=== PATIENT | female | born 1955 | race Hispanic/Latino ===

== ENCOUNTER 2016-08-19 12:14 | Emergency (ER) | payer OTHER ==
--- NOTE | 2016-08-19 12:28 | ED DYSPNEA/ASTHMA COMPLAINT ---
History of Present Illness General Chief Complaint: Dyspnea (COPD, CHF, Other) Stated Complaint: SOB Source: patient, family, old records Exam Limitations: no limitations Vital Signs & Intake/Output Vital Signs & Intake/Output Vital Signs Date Time Temp Pulse Resp B/P Pulse O2 O2 Flow FiO2 Ox Delivery Rate 08/19 1638 97.6 75 18 104/62 97 Room Air 08/19 1625 97.4 75 20 107/56 96 Room Air 08/19 1434 97.3 78 18 106/57 99 Room Air 08/19 1400 98 Room Air 08/19 1253 94 08/19 1219 98.9 91 24 104/69 96 Allergies Coded Allergies: ciprofloxacin (From CIPRO) (UNKNOWN 08/19/16) lorazepam (UNKNOWN 08/19/16) metronidazole (UNKNOWN 08/19/16) Reconcile Medications Azithromycin (Zithromax) 250 MG TABLET 1 DP PO AD ATYPICAL PNEUMONIA 2 the first day followed by 1 for days 2-5 Meloxicam 15 MG TABLET 1 TAB PO DAILY PAIN (Reported) Triage Note: CO SOB SINCE LAST NIGHT PAIN TO RIBS AND LUNGS AND CHEST WITH INSPIRATION Triage Nurses Notes Reviewed? yes HPI: Patient presents complaining of shortness of breath and dyspnea on exertion since yesterday. Patient states that she is also getting sharp substernal chest pain when she ambulates occasionally when she rests. There is no radiation of the sharp pain. At its worst the pain is 5 out of 10. Patient denies any orthopnea and she slept on one pillow last night. Patient states that she's had a very mild cough for the past 2 days. Patient states that she had similar symptoms in May and again in the beginning of July and she was diagnosed with bronchitis. Past History Travel History Traveled to [place] past 21 day No Medical History Any Pertinent Medical History? see below for history Neurological: NONE EENT: NONE Cardiovascular: NONE Respiratory: NONE Gastrointestinal: NONE Hepatic: NONE Renal: NONE Musculoskeletal: ARTHRITIS Psychiatric: NONE Endocrine: NONE Surgical History Surgical History: non-contributory Psychosocial History Who do you live with Family Services at Home None What is your primary language Welsh Tobacco Use: Never used ETOH Use: denies use Illicit Drug Use: denies illicit drug use Family History Hx Contributory? No Review of Systems Review of Systems Constitutional: Reports: no symptoms. EENTM: Reports: no symptoms. Respiratory: Reports: see HPI, short of breath. Cardiovascular: Reports: no symptoms. GI: Reports: no symptoms. Genitourinary: Reports: no symptoms. Musculoskeletal: Reports: no symptoms. Skin: Reports: no symptoms. Neurological/Psychological: Reports: no symptoms. Hematologic/Endocrine: Reports: no symptoms. Immunologic/Allergic: Reports: no symptoms. All Other Systems: Reviewed and Negative Physical Exam Physical Exam General Appearance: well developed/nourished, alert, awake, anxious, mild distress Head: atraumatic, normal appearance Eyes: Bilateral: PERRL, EOMI. Ears, Nose, Throat: normal pharynx, normal ENT inspection, hearing grossly normal Neck: normal inspection, supple, full range of motion Respiratory: chest non-tender, no respiratory distress, decreased breath sounds Cardiovascular: regular rate/rhythm, normal peripheral pulses Gastrointestinal: normal bowel sounds, soft, non-tender, no organomegaly Extremities: normal inspection, normal capillary refill, normal range of motion, no edema Neurologic/Psych: no motor/sensory deficits, awake, alert, oriented x 3, normal mood/affect Skin: intact, normal color, warm/dry Lymphatic: no anterior cervical jesus Core Measures ACS in differential dx? Yes ASA ordered for poss ACS? No-ACS ruled out Severe Sepsis Present: No Septic Shock Present: No Progress Differential Diagnosis: asthma, bronchitis, CHF, COPD, pulmonary embolism, pneumonia, pneumothorax Plan of Care: Orders Procedure Date/time Status TROPONIN LEVEL 08/19 1227 Complete D-DIMER 08/19 1227 Complete COMPREHENSIVE METABOLIC PANEL 08/19 1227 Complete CBC WITHOUT DIFFERENTIAL 08/19 1227 Complete EKG 08/19 1220 Active Laboratory Tests 08/19/16 1240: Anion Gap 12, Estimated GFR > 60, BUN/Creatinine Ratio 32.5 H, Glucose 96, Calcium 9.8, Total Bilirubin 0.6, AST 17, ALT 31, Alkaline Phosphatase 88, Troponin I < 0.01, Total Protein 7.2, Albumin 4.2, Globulin 3.0, Albumin/ Globulin Ratio 1.4, D-Dimer 238 H, CBC w Diff NO MAN DIFF REQ, RBC 4.03 L, MCV 89.6, MCH 30.3, RDW 13.4, MPV 8.6, Gran % 73.2, Lymphocytes % 12.9 L, Monocytes % 7.1, Eosinophils % 6.2 H, Basophils % 0.6, Absolute Granulocytes 6.5, Absolute Lymphocytes 1.2, Absolute Monocytes 0.6, Absolute Eosinophils 0.6, Absolute Basophils 0.1, PUBS MCHC 33.8 Diagnostic Imaging: Viewed by Me: Radiology Read. Discussed w/RAD: Radiology Read. CXR Impression: PATIENT: ARIK QUINTEROS PRESENT AGE: 61 PATIENT ACCOUNT NO: [id number] : 54 LOCATION: [facility] ORDERING PHYSICIAN: PEACE SALES MD SERVICE DATE: 08/19/16 EXAM TYPE: RAD - XRY-CHEST XRAY, PA AND LATERAL EXAMINATION: XR CHEST CLINICAL INFORMATION: Shortness of breath. COMPARISON: 10/12/08. TECHNIQUE: 2 views of the chest were obtained. FINDINGS: The lungs are clear with no focal consolidation or other abnormality demonstrated. The pleural spaces are clear. The heart and mediastinal structures are normal. Mild multilevel spondylosis is present in the thoracic spine. IMPRESSION: No cardiopulmonary disease demonstrated. DICTATED BY: KALYANI NOE MD DATE/TIME DICTATED:08/19/161321 COMMUNICATIONS EQUIPMENT SUPERVISOR:NAE DATE/ TIME TRANSCRIBED:08/19/161321 CONFIDENTIAL, DO NOT COPY WITHOUT APPROPRIATE AUTHORIZATION. <Electronically signed in Other Vendor System> SIGNED BY: KALYANI NOE MD 08/19/164 Initial ED EKG: NSR, no ST T wave changes Prior EKG: unchanged Departure Departure Disposition: HOME OR SELF CARE Condition: Stable Clinical Impression Primary Impression: Atypical pneumonia Referrals: PATIENT HAS NO PRIMARY CARE DR Additional Instructions: FOLLOW UP WITH YOUR REGULAR DOCTOR TAKE Z-PACK DIRECTED RETURN FOR ANY CONCERNS Departure Forms: Customer Survey General Discharge Information Prescriptions: Current Visit Scripts Azithromycin (Zithromax) 1 DP PO AD #6 TAB 2 the first day followed by 1 for days 2-5 Critical Care Note Critical Care Note Critical Care Time: non-applicable
[2016-08-19 12:52] LABS: ABSOLUTE BASOPHIL COUNT 0.1 /CUMM (0.0-0.2); ABSOLUTE EOSINOPHIL COUNT 0.6 /CUMM (0.0-0.7); ABSOLUTE GRANULOCYTE CT 6.5 /CUMM (1.4-6.5); ABSOLUTE LYMPH COUNT 1.2 /CUMM (1.2-3.4); ABSOLUTE MONOCYTE COUNT 0.6 /CUMM (0.10-0.60); BASOPHIL % 0.6 % (0.0-2.0); EOSINOPHIL % 6.2 % (0-5); GRANULOCYTE % 73.2 % (42.2-75.2); HEMATOCRIT 36.1 % (37-47); MEAN CORPUSCULAR HGB 30.3 PG (27.0-31.0); MEAN CORPUSCULAR HGB CONC 33.8 G/DL (33.0-37.0); MEAN CORPUSCULAR VOLUME 89.6 FL (81.0-99.0); MEAN PLATELET VOLUME 8.6 FL (7.4-10.4); PLATELET COUNT 239 /CUMM (130-400); RBC DISTRIBUTION WIDTH 13.4 % (11.5-14.5); RED BLOOD CELL CT 4.03 /CUMM (4.20-5.40); WHITE BLOOD CELL COUNT 8.9 /CUMM (4.8-10.8)
--- NOTE | 2016-08-19 13:28 | RADIOLOGY REPORT ---
EXAMINATION: XR CHEST CLINICAL INFORMATION: Shortness of breath. COMPARISON: 10/12/08. TECHNIQUE: 2 views of the chest were obtained. FINDINGS: The lungs are clear with no focal consolidation or other abnormality demonstrated. The pleural spaces are clear. The heart and mediastinal structures are normal. Mild multilevel spondylosis is present in the thoracic spine. IMPRESSION: No cardiopulmonary disease demonstrated.
[2016-08-19] MEDS ORDERED: MELOXICAM15 M1 PO (14:53)
--- NOTE | 2016-08-19 15:37 | CT SCAN REPORT ---
EXAMINATION: CT CHEST PE STUDY CLINICAL INFORMATION: Chest pain and shortness of breath. Presumptive diagnosis of pulmonary embolism. COMPARISON: Chest x-ray dated 08/19/2016. CT scan of the abdomen and pelvis dated 11/23/2009 and 12/19/2006. TECHNIQUE: Prior to contrast administration, localization images were obtained. After the administration of 95 mL of intravenous Optiray 350, multidetector CT volume acquisition of the chest was performed using a smart prep protocol. 3-D postprocessing was performed with multiplanar reconstructions and MIP images obtained at the acquisition workstation. DLP: 311.85 mGy-cm. FINDINGS: Pulmonary arteries: The bolus timing on this study is suboptimal for visualization of the pulmonary arterial tree given intense enhancement of the aorta relative to the pulmonary artery and given extensive concentration of contrast in the superior vena cava, producing significant surrounding beam hardening artifact. Within the limitations of this exam, however, there are no intraluminal pulmonary arterial filling defects present to suggest pulmonary embolism in the main pulmonary artery, left main pulmonary artery, lobar and segmental branches. The distal right main pulmonary artery and its central branches are not adequately assessed due to the above described artifact. Lungs: Patchy parenchymal opacity is seen in the inferior lingula with associated air bronchograms and mild traction bronchiectasis, most likely related to chronic atelectasis and scarring, unchanged dating back to 11/23/2009. Medially in the right middle lobe, masslike areas of peripheral opacity are seen with associated mild traction bronchiectasis and air bronchograms. No pleural effusion or pneumothorax. The central airways are patent. Aorta and heart: The heart is normal in size. The mediastinum, aorta and great vessels are normal. No leftward bowing of the interventricular septum is seen. No reflux of contrast into the hepatic veins is noted. There is a trace pericardial effusion. Lymphatic structures: There is no lymphadenopathy. Thyroid gland: Unremarkable to the extent seen. Upper abdomen: There is a exophytic 1 cm low-attenuation mass in the mid left kidney, most consistent with a small cyst. Limited evaluation of the upper abdominal viscera demonstrates no other focal abnormality. Bones: Mild multilevel vertebral spondylosis is seen. No significant focal findings. IMPRESSION: 1. Limited and inconclusive exam with extensive artifact obscuring assessment of the distal right main pulmonary artery and its central branches. Remainder of the central pulmonary arterial tree is unremarkable. The patient was brought back for repeat scanning, but refuses further imaging at this point. 2. Pleural-based masslike opacities in the medial right middle lobe with associated areas of irregular parenchymal consolidation and air bronchograms and traction bronchiectasis. Findings are nonspecific and given similar though less extensive findings in the lingula, may be related to chronic scarring. Differential would also include focal masslike area of pneumonia, atypical mycobacterial infection/TB, or less likely subtle neoplastic process and also less likely peripheral lung infarct. Close clinical correlation and follow-up is requested. 3. Incidental small mid left renal low-attenuation mass, most likely a small cyst. VTE: Inconclusive. Findings discussed with Dr. Андрей Porter 08/19/2016, 3:30 PM
[2016-08-19] MEDS ORDERED: ZITHROMAX250 M2 PO (16:33)
[2016-08-19 16:38] VITALS: BP 104/62
== END 2016-08-19 16:48 ==
LOC: ERH 12:14
PROVIDERS: Emergency Medicine
DX: J18.9 Pneumonia, unspecified organism (principal); R07.2 Precordial pain
CPT/HCPCS: 1263; 93005; 93010; 96374; J1885